=== PATIENT | female | born 1965 | race Caucasian/White ===

== ENCOUNTER 2017-11-09 08:46 | Emergency (ER) | payer BC, OTHER ==
[2017-11-09 08:59] VITALS: BP 136/84
[2017-11-09] MEDS ORDERED: HYDROcodone/ACETAMIN 5-325 MG* 1 TAB PO ONE (09:28)
[2017-11-09] MEDS ORDERED: Ondansetron ODT TAB* 4 MG PO ONE (09:28)
--- NOTE | 2017-11-09 10:09 | UC ---
Juan Josue Angela, scribed for Malu Shell MD on 11/09/17 at 0922 . Back Pain HPI - HPI Summary HPI Summary: This pt is a 52 y/o female presenting to [facility] for back pain x11 days. She reports after her colonoscopy her pain was gone. As of last night, her pain began to worsen. She describes it as severe pressure. Denies dysuria, fever, rash, diarrhea. Pt was nauseous earlier, but denies having nausea currently. Pt has tried muscle relaxants and icy-hot with no relief. She has only had coffee this morning. PCP: Dr. Watters. Family history includes colon CA (mother and grandmother). Denies hematuria, unusual frequency / urgency, urine discoloration. No GI issues (other than s/p recent colonoscopy). No report of melena / brbr. - History of Current Complaint Chief Complaint: UCGU Stated Complaint: BACK PAIN Time Seen by Provider: 11/09/17 09:07 Hx Obtained From: Patient Hx Last Menstrual Period: 02/20/14 Onset/Duration: Lasting Days, Still Present Timing: Lasting Days Severity Currently: Moderate Pain Intensity: 5 Pain Scale Used: 0-10 Numeric Back Pain: Is Discrete @ - right sided back Aggravating Factor(s): Nothing Alleviating Factor(s): Nothing Associated Signs And Symptoms: Positive: Other - NEG: dysuria,. Negative: Fever - Allergies/Home Medications Allergies/Adverse Reactions: Allergies Allergy/AdvReac Type Severity Reaction Status Date / Time No Known Allergies Allergy Verified 11/09/17 08:55 PMH/Surg Hx/FS Hx/Imm Hx Previously Healthy: Yes Other Endocrine History: DENIES: diabetes Other Cardiovascular History: DENIES: HTN - Surgical History Surgical History: Yes Surgery Procedure, Year, and Place: C-sections; tubal ligation; L knee; R rotator cuff; tonsillectomy; partial hysterrectomy, PIECE OF METAL IN EYE REMOVED; LT SHOULDER DECOMPRESSION 02/2015 - Family History Known Family History: Positive: Other - Mother and grandmother: colon CA - Social History 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 Alcohol Use: Occasionally Substance Use Type: None Smoking Status (MU): Never Smoked Tobacco Review of Systems Constitutional: Negative Skin: Negative Eyes: Negative ENT: Negative Respiratory: Negative Cardiovascular: Negative Gastrointestinal: Other - see hpi Genitourinary: Negative Motor: Negative Neurovascular: Negative Musculoskeletal: Other: - right sided back pain Neurological: Negative Psychological: Negative Is Patient Immunocompromised?: No All Other Systems Reviewed And Are Negative: Yes Physical Exam Triage Information Reviewed: Yes Appearance: Well-Nourished, Pain Distress - sitting up but looks very uncomfortable Vital Signs: Initial Vital Signs Temp 97.9 F 11/09/17 08:56 Pulse 86 11/09/17 08:56 Resp 15 11/09/17 08:56 BP 136/84 11/09/17 08:56 Pulse Ox 100 11/09/17 08:56 Vital Signs Reviewed: Yes Eye Exam: Normal ENT Exam: Normal Neck exam: Normal Neck: Positive: Supple Respiratory Exam: Normal Respiratory: Positive: Chest non-tender, Lungs clear, Normal breath sounds, No respiratory distress, Other: - no dyspnea, no tachypnea, normal respiratory rate Cardiovascular Exam: Normal Cardiovascular: Positive: RRR, No Murmur, Pulses Normal, Brisk Capillary Refill , Other: - heart rate regular, good general skin color, good capillary refill. Abdomen Description: Positive: Soft, CVA Tenderness (R), Other: - no rebound no guarding Bowel Sounds: Positive: Present Musculoskeletal Exam: Normal Musculoskeletal: Positive: Strength Intact - moves all 4 ext's Neurological Exam: Normal - nonfocal, grossly intact Psychological Exam: Normal - conversing easily and appropriately Skin Exam: Normal - no visible or reported rash Back Pain Course/Dx - Course Course Of Treatment: POC urine shows 3+ blood. Patient offered EMS. Patient declines, her will drive her. At 09:[address] Calle from [facility]. [place] 5/325po x 2, and Zofran 4mg x 1po. A little better at discharge. Narc questions prior to ordering norco. Diff dx includes renal colic. - Differential Dx/Diagnosis Provider Diagnoses: Acute R back and flank pain Discharge - Discharge Plan Condition: Stable Disposition: TRANS HIGHER LVL OF CARE FAC Referrals: Susan Watters MD [Primary Care Provider] - Additional Instructions: Please go directly to the Emergency Department. Call 911 if problems en route. The documentation as recorded by the Juan brooks Angela accurately reflects the service I personally performed and the decisions made by me, Malu Shell MD.
--- NOTE | 2017-11-11 11:38 | UC ---
- Progress Note Progress Note: please call this pt and inform of urine cx strongly positive for group b strep. let her know that we have sent in an abx to pharmacy. pt should otherwise f/ u as directed by ed. Course/Dx - Course Course Of Treatment: POC urine shows 3+ blood. Patient offered EMS. Patient declines, her will drive her. At 09:[address] Calle from [facility]. [place] 5/325po x 2, and Zofran 4mg x 1po. A little better at discharge. Narc questions prior to ordering norco. Diff dx includes renal colic.
== END 2017-11-09 09:55 | disposition short-term general hospital (02) ==
LOC: UCEAST 08:46
DX: N39.0 Urinary tract infection, site not specified (principal); B95.1 Streptococcus, group B, as the cause of diseases classified elsewhere; Z72.89 Other problems related to lifestyle
CPT/HCPCS: 81003; 87077; 87086; 99212; A9270-GY; G0463

== ENCOUNTER 2017-11-09 10:08 | Emergency (ER) | payer BC ==
[2017-11-09] MEDS ORDERED: Ondansetron INJ* 2 MG/ML VIAL IV ONE (11:32)
[2017-11-09] MEDS ORDERED: Morphine INJ* 2 MG/ML 1 ML CARPUJECT IV ONE (11:32)
[2017-11-09] MEDS ORDERED: NS 0.9% 1000 ML* 1,000 ML IV ONE (11:32)
[2017-11-09] MEDS ORDERED: Ketorolac INJ* 30 MG/ML 1 ML VIAL IV ONE (11:32)
[2017-11-09 12:07] LABS: ABS Basophils 0 10^3/ul (0-0.2); ABS Eosinophils 0.1 10^3/ul (0-0.6); ABS Lymphocytes 0.9 10^3/ul (1.0-4.8); ABS Monocytes 0.2 10^3/ul (0-0.8); ABS Neutrophils 3.5 10^3/ul (1.5-7.7); ABS Nucleated RBC 0 10^3/ul; Eosinophil % 2.6 % (0-6); Hematocrit 42 % (35-47); Hemoglobin 14.3 g/dl (12.0-16.0); Lymphocyte % 18.6 % (25-47); Mean Corpuscular HGB Conc 34 g/dl (31-36); Mean Corpuscular Hemoglobin 31 pg (27-31); Mean Corpuscular Volume 91 fL (80-97); Mean Platelet Volume 9 um3 (7.4-10.4); Nucleated Red Blood Cells % 0.1; Platelet Count 173 10^3/ul (150-450); Red Blood Count 4.65 10^6/ul (4.0-5.4); Red Cell Distribution Width 13 % (10.5-15); White Blood Count 4.8 10^3/ul (3.5-10.8)
--- NOTE | 2017-11-09 12:13 | RAD ---
INDICATION: Flank pain. Nausea. COMPARISON: No relevant prior exams available on the [facility] PACS for comparison. TECHNIQUE: Multidetector CT images were obtained from the lung bases to the ischial tuberosities. Evaluation of the viscera is limited without IV contrast. Multiplanar reformation. REPORT: The visualized inferior thorax is remarkable for minimal subsegmental atelectasis and pleural parenchymal scarring. Unremarkable unenhanced liver, gallbladder, pancreas, spleen. Negative for CT abnormality of the upper GI, small bowel, retrocecal appendix, colon. Negative for ascites, free air, or significant hernias. Normal adrenal glands. Unremarkable symmetric appearing kidneys. Negative for ureteral dilatation or stone. Unremarkable distended urinary bladder. Leftward deviated anteverted lobular margined enlarged 12.0 x 7.4 x 10.2 cm uterus. Sharply circumscribed water density 5.3 x 3.1 x 2.5 cm cystic RIGHT ovarian lesion. Unremarkable LEFT adnexal region. Negative for lymphadenopathy. Normal diameter abdominal aorta and iliac arteries. Physiologic distention of the IVC. Negative for suspicious focal osseous lesions. Schmorl node endplate herniations at multiple levels most prominent at the superior endplate of L3. Minimal grade 1 degenerative L3-L4 retrolisthesis. IMPRESSION: 1. Negative for urolithiasis or hydronephrosis. 2. Normal appendix documented. No acute pathologic process of the alimentary tract. 3. Enlarged lobular margin uterus likely secondary to multiple fibroids. 4. 5.3 cm cystic RIGHT ovarian lesion. Consider pelvic ultrasound for further assessment. 5. Negative for free fluid.
[2017-11-09] MEDS ORDERED: Morphine INJ* 4 MG/ML 1 ML CARPUJECT ONE (12:24)
[2017-11-09 12:25] LABS: INR 0.81 (0.77-1.02)
[2017-11-09 12:38] LABS: EGFR Non-African American 100.7 (>60)
--- NOTE | 2017-11-09 15:08 | RAD ---
INDICATION: Right pelvic pain. Surgical history includes left oophorectomy. COMPARISON: Same day CT of the abdomen and pelvis dated November 09, 2017 TECHNIQUE: Real-time transabdominal and transvaginal ultrasound examination of the female pelvis including grayscale and Doppler color flow imaging. FINDINGS: Uterus: The uterus is enlarged measuring 9.6 x 5.5 x 6.8 cm. There are multiple uterine fibroids identified. The largest fibroid is at the anterior fundus measuring 6.2 x 5.8 x 5.8 cm. At the right of midline myometrium there are 2 additional fibroids measuring 2.7 and 2.0 cm in greatest dimension, respectively. The endometrial stripe is mildly thickened measuring 13 mm in thickness. The endometrial stripe is smooth and homogenous in appearance. Ovaries: The right ovary measures 4.8 x 4.3 x 3.3 cm on transabdominal imaging. Extending from the right ovary there is an anechoic and avascular follicle measuring 4.4 x 2.8 x 3.8 cm in greatest dimension. Normal arterial and venous waveforms are identified. There is no free fluid in the cul-de-sac. IMPRESSION: 1. Within the right ovary there is an avascular and anechoic cystic structure measuring 4.4 cm in greatest dimension. In a woman who is still undergoing regular menstrual cycles this is most consistent with a large dominant follicle. Considering the patient's age, reasonable management would be follow-up pelvic ultrasound in 6 weeks to ascertain resolution. 2. Fibroid uterus.
--- NOTE | 2017-11-09 15:19 | ED ---
Jaren Josue Thomas, scribed for Job Parra on 11/09/17 at 1143 . Back Pain - HPI Summary HPI Summary: The patient is a 52 year old female presenting to the emergency department complaining of lower back pain in the right flank. The patient describes that she was not feeling well beginning October 30 and began feeling nauseous the last few days. She rates the pain at a 3/10. The patient denies fever, vomiting , chest pain, shortness of breath, abdominal pain, rashes, and kidney stones. She also denies any alcohol use, smoking, and drug use. - History of Current Complaint Chief Complaint: EDBackInjuryPain Stated Complaint: FLANK PAIN, COMING FROM [facility] Time Seen by Provider: 11/09/17 11:13 Hx Obtained From: Patient Hx Last Menstrual Period: 02/20/14 Onset/Duration: Lasting Days - began about 11 days ago, Still Present Onset/Duration: Started Days Ago - 11 days ago, Still Present Timing: Constant Back Pain Location: Is Discrete @ - lower back pain to the right flank Severity Initially: Moderate Severity Currently: Moderate Pain Intensity: 4 Pain Scale Used: 0-10 Numeric Associated Signs And Symptoms: Positive: Flank Pain. Negative: Fever, Abdominal Pain, Other - NEGATIVE: fever, comiting, chest pain, shortness of breath, abdominal pain, rashes, and kidney stones - Allergies/Home Medications Allergies/Adverse Reactions: Allergies Allergy/AdvReac Type Severity Reaction Status Date / Time No Known Allergies Allergy Verified 11/09/17 08:55 PMH/Surg Hx/FS Hx/Imm Hx Endocrine/Hematology History: Denies: Hx Diabetes, Hx Thyroid Disease Cardiovascular History: Denies: Hx Hypertension, Hx Pacemaker/ICD Respiratory History: Denies: Hx Asthma, Hx Chronic Obstructive Pulmonary Disease (COPD) GI History: Denies: Hx Ulcer History: Denies: Hx Renal Disease Sensory History: Denies: Hx Hearing Aid Psychiatric History: Denies: Hx Panic Disorder - Surgical History Surgery Procedure, Year, and Place: C-sections; tubal ligation; L knee; R rotator cuff; tonsillectomy; partial hysterrectomy, PIECE OF METAL IN EYE REMOVED; LT SHOULDER DECOMPRESSION 02/2015 Infectious Disease History: No Infectious Disease History: Denies: Hx Clostridium Difficile, Hx Hepatitis, Hx Human Immunodeficiency Virus (HIV), Hx of Known/Suspected MRSA, Hx Shingles, Hx Tuberculosis, Hx Known/ Suspected VRE, Hx Known/Suspected VRSA, History Other Infectious Disease, Traveled Outside the [place] in Last 30 Days - Family History Known Family History: Negative: Other - kidney stones - Social History Alcohol Use: Occasionally Substance Use Type: Reports: None Smoking Status (MU): Never Smoked Tobacco Review of Systems Negative: Fever Negative: Chest Pain Negative: Shortness Of Breath Positive: Nausea. Negative: Vomiting Positive: flank pain Musculoskeletal: Other - Right flank pain Negative: Rash All Other Systems Reviewed And Are Negative: Yes Physical Exam - Summary Physical Exam Summary: Appearance: Well appearing, no pain distress Skin: warm, dry, reflects adequate perfusion Head/face: normal Eyes: EOMI, WAYNE ENT: normal Neck: supple, non-tender Respiratory: CTA, breath sounds present Cardiovascular: RRR, pulses symmetrical Abdomen: non-tender, soft Bowel: present Musculoskeletal: Tenderness over the right flank and right upper back. strength/ ROM intact Neuro: normal, sensory motor intact, A&Ox3 Triage Information Reviewed: Yes Vital Signs On Initial Exam: Initial Vitals Temp Pulse Resp BP Pulse Ox 97.8 F 81 16 145/105 100 11/09/17 10:12 11/09/17 10:12 11/09/17 10:12 11/09/17 10:12 11/09/17 10:12 Vital Signs Reviewed: Yes Diagnostics - Vital Signs Vital Signs Temp Pulse Resp BP Pulse Ox 11/09/17 10:12 97.8 F 81 16 145/105 100 - Laboratory Lab Results: Lab Results 11/09/17 11/09/17 11/09/17 Range/Units 11:55 11:55 11:55 WBC 4.8 (3.5-10.8) 10^3/ul RBC 4.65 (4.0-5.4) 10^6/ul Hgb 14.3 (12.0-16.0) g/dl Hct 42 (35-47) % MCV 91 (80-97) fL MCH 31 (27-31) pg MCHC 34 (31-36) g/dl RDW 13 (10.5-15) % Plt Count 173 (150-450) 10^3/ul MPV 9 (7.4-10.4) um3 Neut % (Auto) 73.9 (38-83) % Lymph % (Auto) 18.6 L (25-47) % [place] % (Auto) 4.1 (1-9) % Eos % (Auto) 2.6 (0-6) % Baso % (Auto) 0.8 (0-2) % Absolute Neuts (auto) 3.5 (1.5-7.7) 10^3/ul Absolute Lymphs (auto) 0.9 L (1.0-4.8) 10^3/ul Absolute Monos (auto) 0.2 (0-0.8) 10^3/ul Absolute Eos (auto) 0.1 (0-0.6) 10^3/ul Absolute Basos (auto) 0 (0-0.2) 10^3/ul Absolute Nucleated RBC 0 10^3/ul Nucleated RBC % 0.1 INR (Anticoag Therapy) 0.81 (0.77-1.02) Sodium 136 (133-145) mmol/L Potassium 3.9 (3.5-5.0) mmol/L Chloride 105 (101-111) mmol/L Carbon Dioxide 25 (22-32) mmol/L Anion Gap 6 (2-11) mmol/L BUN 11 (6-24) mg/dL Creatinine 0.62 (0.51-0.95) mg/dL Est GFR ( Amer) 129.5 (>60) Est GFR (Non-Af Amer) 100.7 (>60) BUN/Creatinine Ratio 17.7 (8-20) Glucose 116 H (70-100) mg/dL Calcium 9.6 (8.6-10.3) mg/dL Total Bilirubin 0.40 (0.2-1.0) mg/dL AST 19 (13-39) U/L ALT 22 (7-52) U/L Alkaline Phosphatase 67 (34-104) U/L Total Protein 7.3 (6.4-8.9) g/dL Albumin 4.8 (3.2-5.2) g/dL Globulin 2.5 (2-4) g/dL Albumin/Globulin Ratio 1.9 (1-3) Lipase 71 (11.0-82.0) U/L Beta HCG, Quant < 0.60 mIU/mL Result Diagrams: 11/09/17 11:55 11/09/17 11:55 Lab Statement: Any lab studies that have been ordered have been reviewed, and results considered in the medical decision making process. - CT Abd/Pel CT Interpretation: Positive (See Comments) - 1. Negative for urolithiasis or hydronephrosis. 2. Normal appendix documented. No acute pathologic process of the alimentary tract. 3. Enlarged lobular margin uterus likely secondary to multiple fibroids. 4. 5.3 cm cystic RIGHT ovarian lesion. Consider pelvic ultrasound for further assessment. 5. Negative for free fluid. Dr. Parra has reviewed this report. CT Interpretation Completed By: Radiologist - Additional Comments Diagnostic Additional Comments: Pelvis Ultrasound. Interpreted by radiologist. Impression: 1. Within the right ovary there is an avascular and anechoic cystic structure measuring 4.4 cm in greatest dimension. In a woman who is still undergoing regular menstrual cycles this is most consistent with a large dominant follicle. Considering the patient' s age, reasonable management would be follow-up pelvic ultrasound in 6 weeks to ascertain resolution. 2. Fibroid uterus. Dr. Parra has reviewed this report. Back Pain Course/Dx - Course Assessment/Plan: The patient is diagnosed with flank pain fibroid uterus, and ovarian cyst. I consulted with Dr. Chen, who recommends uterine embolization for fibroids. The patient is instructed to follow up with Dr. Chen if she is interested. She is also instructed to follow up with her SALES CONSULTANT. - Diagnoses Differential Diagnosis/HQI/PQRI: Positive: Strain, Sprain, Other - renal colic/ fibroid uterus/ovarian cyst Provider Diagnoses: Flank pain, Fibroid uterus, Ovarian cyst - Provider Notifications Discussed Care Of Patient With: Nuno Chen Time Discussed With Above Provider: 15:11 Instructed by Provider To: Other - Dr. Chen recommends follow up with him for uterine embolization. Discharge - Discharge Plan Condition: Stable Disposition: HOME Prescriptions: Naproxen Sodium [Naproxen Sodium ER 500 MG TAB] 500 mg PO TID #21 tab Patient Education Materials: Ovarian Cyst (ED), Flank Pain (ED) Referrals: [facility] [Outside] - 3 Days Nuno Chen MD [Medical Doctor] - 3 Days Additional Instructions: If you are interested, follow up with Dr. Chen for uterine embolization. Follow up with your SALES CONSULTANT. If you do not have one, you can use the [facility] [place] to find one and make an appointment. Return to the emergency department for any new or worsening symptoms. The documentation as recorded by the Jaren brooks Thomas accurately reflects the service I personally performed and the decisions made by , Job Parra.
[2017-11-09 15:37] VITALS: BP 130/92
== END 2017-11-09 15:38 | disposition home or self-care (01) ==
LOC: ED 10:08
DX: R10.84 Generalized abdominal pain (principal); D25.9 Leiomyoma of uterus, unspecified; N83.201 Unspecified ovarian cyst, right side; R11.0 Nausea
CPT/HCPCS: 36415; 74176; 76856; 80053; 83690; 84702; 85025; 85610; 99283; J1885; J2270; J2405

== ENCOUNTER 2018-10-16 09:18 | Emergency (ER) | payer BC ==
[2018-10-16 10:43] VITALS: BP 145/90
[2018-10-16] MEDS ORDERED: Albuterol HFA INHALER* 8 gm MDI INH ONE (10:50)
[2018-10-16] MEDS ORDERED: predniSONE TAB* 20 MG PO ONE (10:50)
--- NOTE | 2018-10-16 10:52 | UC ---
Respiratory Complaint HPI - HPI Summary HPI Summary: The patient is a 53-year-old female with about a 2 week history of nasal congestion postnasal drip cough. She now has bilateral ear pain left much greater than right. Now with decreased hearing in her left ear. Her right ear is popping. - History of Current Complaint Chief Complaint: UCRespiratory Stated Complaint: EARS/ST/CONGESTION Time Seen by Provider: 10/16/18 10:45 Hx Obtained From: Patient Hx Last Menstrual Period: 02/20/14 Onset/Duration: Gradual Onset, Lasting Weeks Timing: Constant Severity Initially: Mild Severity Currently: Moderate Pain Intensity: 4 Pain Scale Used: 0-10 Numeric Character: Cough: Productive - at tmes Aggravating Factors: Exertion, Deep Breaths Alleviating Factors: Nothing Associated Signs And Symptoms: Positive: Wheezing, Nasal Congestion, Sinus Discomfort - Allergies/Home Medications Allergies/Adverse Reactions: Allergies Allergy/AdvReac Type Severity Reaction Status Date / Time No Known Allergies Allergy Verified 10/16/18 10:36 Home Medications: Home Medications Dm/PE/Acetaminophen/Doxylamine [Nighttime Severe Col... 5-6.25-10-325 mg/15Ml] 1 dose PO ONCE 10/16/18 [History Confirmed 10/16/18] PMH/Surg Hx/FS Hx/Imm Hx Previously Healthy: Yes - Surgical History Surgical History: Yes Surgery Procedure, Year, and Place: C-sections;. tubal ligation;. L knee;. R rotator cuff;. tonsillectomy;. hysterrectomy,. PIECE OF METAL IN EYE REMOVED; . LT SHOULDER DECOMPRESSION 02/2015 - Family History Known Family History: Positive: Hypertension Negative: Other - kidney stones - Social History Alcohol Use: Occasionally Substance Use Type: None Smoking Status (MU): Never Smoked Tobacco Review of Systems All Other Systems Reviewed And Are Negative: Yes Constitutional: Positive: Negative Skin: Positive: Negative Eyes: Positive: Negative ENT: Positive: Ear Ache, Nasal Discharge, Sinus Congestion Respiratory: Positive: Cough Cardiovascular: Positive: Negative Gastrointestinal: Positive: Negative Genitourinary: Positive: Negative Motor: Positive: Negative Neurovascular: Positive: Negative Musculoskeletal: Positive: Negative Neurological: Positive: Negative Psychological: Positive: Negative Physical Exam Triage Information Reviewed: Yes Appearance: Well-Appearing, No Pain Distress, Well-Nourished Vital Signs: Initial Vital Signs Temp 97.7 F 10/16/18 10:37 Pulse 78 10/16/18 10:37 Resp 16 10/16/18 10:37 BP 145/90 10/16/18 10:37 Pulse Ox 100 10/16/18 10:37 Vital Signs Reviewed: Yes Eyes: Positive: Conjunctiva Clear ENT: Positive: Hearing grossly normal, Nasal congestion, Nasal drainage, TM bulging - bilat, TM dull - L, TM red - L, Sinus tenderness, Uvula midline Neck: Positive: Supple, Nontender, No Lymphadenopathy Respiratory: Positive: No respiratory distress, No accessory muscle use, Wheezing - with forced expiration Cardiovascular: Positive: RRR, No Murmur Musculoskeletal: Positive: ROM Intact, No Edema Neurological: Positive: Alert Psychological Exam: Normal Skin Exam: Normal UC Diagnostic Evaluation - Laboratory O2 Sat by Pulse Oximetry: 100 Respiratory Course/Dx - Differential Dx/Diagnosis Provider Diagnosis: Bronchospasm with bronchitis, acute, Left otitis media, Elevated blood pressure reading without diagnosis of hypertension, Sinusitis Discharge - Sign-Out/Discharge Documenting (check all that apply): Patient Departure All imaging exams completed and their final reports reviewed: No Studies - Discharge Plan Condition: Stable Disposition: HOME Prescriptions: Amoxicillin PO (*) [Amoxicillin 875 MG (*)] 875 mg PO BID #14 tab Fluticasone NASAL SPRAY 50MCG* [Flonase NASAL SPRAY 50MCG*] 2 spray BOTH NARES BID #1 btl predniSONE [Deltasone 20 MG TAB] 40 mg PO DAILY #10 tab Patient Education Materials: How to Use a Metered-Dose Inhaler (ED), Ear Infection (ED), Acute Bronchitis (ED) Forms: *Work Release Referrals: Susan Watters MD [Primary Care Provider] - 1 Week (if not better) Additional Instructions: BP elevated and needs to be rechecked in 2-12 weeks 145/90 - Billing Disposition and Condition Condition: STABLE Disposition: Home
== END 2018-10-16 11:07 | disposition home or self-care (01) ==
LOC: UCCORT 09:18
DX: J20.9 Acute bronchitis, unspecified (principal); H66.92 Otitis media, unspecified, left ear; R03.0 Elevated blood-pressure reading, without diagnosis of hypertension; J32.9 Chronic sinusitis, unspecified
CPT/HCPCS: 99212; A9270-GY; G0463; J7512

== ENCOUNTER 2019-11-03 13:14 | Emergency (ER) | payer BC ==
--- OUTSIDE RECORDS SUMMARY | 2019-11-03 13:20 | XMS REPORT | Summary of Care ---
:1965 Author Organization [facility] Address 1 [facility] [place] [address] Care Team Providers Name Role Phone Susan Watters Primary Care Provider Reason for Visit Reason Comments Surgical Followup Kirstin is here today for her 2 week post op appt. s/p RS/SAD/JARAD/INJECTION on 09/04/19. She is doing well. Incisions well approximated. Encounter Details Date Type Department Care Team Description 09/10/2019 Office Visit [facility] - Star Garcia MD S/P arthroscopy of [address] right shoulder 10 [facility] [place] [address] (Primary Dx) [address] [phone] [place] [address] [phone] Allergies No Known Allergiesdocumented as of this encounter (statuses as of 09/10/2019) Medications Medication Sig Dispensed Refills Start Date End Date Status ZOLOFT 100 MG Oral Take 1.5 Tabs by 135 Tab 3 01/24/2019 Active TabIndications: Other mouth DAILY. depression Additional information Patient taking differently: 100 mg Oral DAILY, Reported on 09/01/2019 1:18 PM cyclobenzaprine Take 1 Tab by 30 Tab 0 04/04/2019 Active (FLEXERIL) 10 MG Oral mouth EVERY TabIndications: Strain BEDTIME of neck muscle, initial NEEDED (shoulder encounter pain). OXYcodone Take 1 Tab by 20 Tab 0 09/04/2019 Discontinued (OXY-IR,OXY-FAST) 5 MG mouth EVERY FOUR 019 (Therapy Completed) Oral Tab HOURS NEEDED (pain). Max Daily Amount: 30 mg. documented as of this encounter (statuses as of 09/10/2019) Active Problems Problem Noted Date Shoulder stiffness, right 07/14/2019 Overview: Added automatically from request for surgery [id number] FHx: colon cancer 03/14/2017 Stiffness of left shoulder joint 08/25/2015 Status post decompression of subacromial space 03/30/2015 Rotator cuff tear 02/22/2015 Shoulder pain, left 12/22/2014 Disorders of bursae and tendons in shoulder region, unspecified 12/22/2014 Migraine headache 12/14/2010 Adhesion of abdominal wall 01/10/2008 Overview: x3; laparotomy Other and unspecified ovarian cyst 05/24/2007 Overview: Cyst removed 05/2007 documented as of this encounter (statuses as of 09/10/2019) Immunizations Name Administration Dates Next Due TDAP Vaccine 04/20/2017 documented as of this encounter Social History Tobacco Use Types Packs/Day Years Used Date Never Smoker 0 Smokeless Tobacco: Never Used Tobacco Cessation: Counseling Given: No Alcohol Use Drinks/Week oz/Week Comments Yes 10-12 Standard drinks or equivalent 14.0 - 17.0 4-5 Cans of beer Alcohol Habits Answer Date Recorded How often do you have a drink containing alcohol? 2-3 times a week 09/01/2019 How many drinks containing alcohol do you have on a Not asked typical day when you are drinking? How often do you have six or more drinks on one Not asked occasion? Sex Assigned at Date Recorded Not on file Job Start Date Occupation Industry Not on file Not on file Not on file Travel History Travel Start Travel End No recent travel history available. documented as of this encounter Last Filed Vital Signs Vital Sign Reading Time Taken Comments Blood Pressure 125/84 09/10/2019 11:36 AM EST Pulse - - Temperature - - Respiratory Rate - - Oxygen Saturation - - Inhaled Oxygen Concentration - - Weight 63.5 kg (140 lb) 09/10/2019 11:36 AM EST Height 149.9 cm (4' 11") 09/10/2019 11:36 AM EST Body Mass Index 28.28 09/10/2019 11:36 AM EST documented in this encounter Progress Notes Star Garcia MD - 09/10/2019 11:15 AM EST PATIENT: Kirstin Ta : 1965 DATE OF SERVICE: 09/10/2019 REFERRING PRACTITIONER: Star Garcia PRIMARY CARE PROVIDER: Susan Watters CHIEF COMPLAINT: Chief Complaint Patient presents with Surgical Followup Kirstin is here today for her 2 week post op appt. s/p RS/SAD/JARAD/INJECTION on . She is doingwell. Incisions well approximated. HISTORY OF PRESENT ILLNESS: Kirstin Ta is a 54-y.o. female who returns for a follow up for right shoulder subacromial decompression, manipulation. PHYSICAL EXAM: Incision clean dry and intact Neurovascularly intact IMPRESSION: ICD-9-CM ICD-10-CM 1. S/P arthroscopy of right shoulder V45.89 Z98.890 PLAN: Doing well. Continue exercises. Follow up in 4 weeks. The numbness in her fingers are improving. Author: Star Garcia MD 09/10/2019 13:31 documented in this encounter Plan of Treatment Date Type Specialty Care Team Description 10/08/2019 Office Visit Orthopedics Star Garcia MD 1 [place] [address] Health Maintenance Due Date Last Done Comments ZOSTER IMMUNIZATION SERIES 2014 (1 of 2) INFLUENZA VACCINE (#1) 2019 DEPRESSION SCREENING 01/25/2020 01/24/2019 DIABETES SCREENING 09/01/2020 09/01/2019, 04/30/2017, 04/30/2017, Additional history exists LIPID DISORDER SCREENING 04/30/2022 04/30/2017, 08/11/2015, 05/02/2006 Colonoscopy 10/30/2022 10/30/2017, 04/30/2017 HPV IMMUNIZATION SERIES Aged Out No longer eligible based on patient's age to complete this topic MENINGOCOCCAL VACCINE IMM Aged Out No longer eligible based on patient's age to complete this topic PNEUMOCOCCAL 0-64 YRS Aged Out No longer eligible based on patient's age to complete this topic documented as of this encounter Goals Goal Patient Goal Associated Recent Patient-Stated? Author Type Problems Progress Depression Depression No lucy Watters (PHQ-9) MD Susan total score < 5 Note: This is an individualized treatment (depression) goal for Kirstin Ta: Displayed above is your goal for a depression screening (PHQ-9) score that would indicate good control of your depression. Keep a regular sleep schedule Lifestyle Susan Alves MD Note: This is an individualized lifestyle goal for Kirstin Ta: Please maintain a regular sleep schedule. This may help with some symptoms of depression. Take all prescribed medications as directed Self-management Susan Alves MD Note: This is an individualized self-management goal for Kirstin Ta: Please take all prescribed medications as directed. 1. Do not skip doses. If you cannot afford your medications, talk with your doctor. 2. Use a pill reminder system such as a pill box if needed. Your pharmacist can help you with this. 3. Contact your Pharmacy 5 days before your medication runs out. If you cannot take your medications for any reasons, talk with your doctor. 4. Please bring all of your medication bottles and inhalers (or a list of all your medications/inhalers) with you to every visit. Potential barriers to meeting all of your care plan goals will continue to be addressed on an ongoing basis. documented as of this encounter Implants Implanted Type Area Psychiatry Teacher Device Shelf Model / Identifier Expiration Date Serial / Lot Fiberwire #2 - [id number] Left: ARTHREX 06/22/2019 [id number] / Implanted: Qty: 1 on 03/03/2015 by Eliud Aranda MD at [facility] [place] / [id number] documented as of this encounter Results Not on filedocumented in this encounter Visit Diagnoses Diagnosis S/P arthroscopy of right shoulder - Primary documented in this encounter Insurance Payer Benefit Plan / Subscriber ID Effective Dates Phone Address Type Group [facility]WORKERS xxxxxxxxx 2008-[employer] Workers Comp COMP [facility] GENERIC (Work) [id number] documented as of this encounter
--- OUTSIDE RECORDS SUMMARY | 2019-11-03 13:20 | XMS REPORT | Summary of Care ---
:1965 Author Organization [facility] Address 1 [facility] [place] [address] Care Team Providers Name Role Phone ElijahSusan ramirez Primary Care Provider Reason for Visit Reason Comments Post-op Follow-up S/P RS/SAD/JARAD/CAPS RLS/IHJ 09-04-19. Encounter Details Date Type Department Care Team Description 10/29/2019 Office Visit [facility] Jonathaniglio, Right shoulder pain , unspecified chronicity (Primary Dx); - [place] Martinez, ONESIMO-C Pain in right acromioclavicular joint [address] 1 [facility] [address] [place] [address] [place] [address] Allergies No Known Allergiesdocumented as of this encounter (statuses as of 10/29/2019) Medications Medication Sig Dispensed Refills Start Date End Date Status ZOLOFT 100 MG Oral Take 1.5 Tabs by 135 Tab 3 01/24/2019 Active TabIndications: Other mouth DAILY. depression Additional information Patient taking differently: 100 mg Oral DAILY, Reported on 09/01/2019 1:18 PM cyclobenzaprine (FLEXERIL) 10 Take 1 Tab by mouth EVERY 30 Tab 0 2018 Active MG Oral TabIndications: Strain BEDTIME NEEDED of neck muscle, initial (shoulder pain). encounter diclofenac (VOLTAREN) 75 MG Take 1 Tab by mouth TWICE 60 Tab 0 10/29/2019 Active Oral Tab EC DAILY. OXYcodone-acetaminophen Take 1 Tab by mouth EVERY 21 Tab 0 10/29/2019 Active (PERCOCET) 5-325 MG Oral Tab EIGHT HOURS NEEDED (pain, continued treatment). Max Daily Amount: 3 Tabs. documented as of this encounter (statuses as of 10/29/2019) Active Problems Problem Noted Date Shoulder stiffness, right 07/14/2019 Overview: Added automatically from request for surgery [id number] FHx: colon cancer 03/14/2017 Stiffness of left [...] as of this encounter (statuses as of 10/29/2019) Immunizations Name Administration Dates Next Due TDAP Vaccine 04/20/2017 documented as of this encounter Social History Tobacco Use Types Packs/Day Years Used Date Never Smoker 0 Smokeless Tobacco: Never Used Alcohol Use Drinks/Week oz/Week Comments Yes 10-12 [...] Sign Reading Time Taken Comments Blood Pressure 177/126 10/29/2019 1:26 PM EST Pulse 93 10/29/2019 1:26 PM EST Temperature - - Respiratory Rate - - Oxygen Saturation - - Inhaled Oxygen Concentration - - Weight 63.5 kg (140 lb) 10/29/2019 1:26 PM EST Height 149.9 cm (4' 11") 10/29/2019 1:26 PM EST Body Mass Index 28.28 10/29/2019 1:26 PM EST documented in this encounter Progress Notes Juan Flores RPA-C - 10/29/2019 1:15 PM EST PATIENT: Kirstin Ta : 1965 DATE OF SERVICE: 10/29/2019 REFERRING PRACTITIONER: Self-Referred PRIMARY CARE PROVIDER: Susan Watters CHIEF COMPLAINT: Chief Complaint Patient presents with Post-op Follow-up S/P RS/SAD/JARAD/CAPS RLS/IHJ 09-04-19. HISTORY OF PRESENT ILLNESS: Kirstin Ta is a 54-y.o. female who returns for a follow up for right shoulder subacromial decompression, manipulation about 7 weeks ago. State she woke up with her arm stuck above her head and felt a pull when she lowered it down. Has had increased pain since that time. State numbness in her fingers prior to surgery has resolved. PHYSICAL EXAM: Incision clean dry and intact Neurovascularly intact Marked tenderness over AC joint. Flexion 100, 4/5 ER 20, 4/5 IR back pocket 4/5 + impingement symptoms. Xrays: no fracture, moderate AC joint arthritis. IMPRESSION: ICD-9-CM ICD-10-CM 1. Right shoulder pain, unspecified chronicity 719.41 M25.511 XR SHOULDER MIN 2 VIEWS RIGHT (STANDARD) 2. Pain in right acromioclavicular joint 719.41 M25.511 PLAN: I think she aggravated her AC joint. She does have some underlying arthritis so this may have flaredup. Aleve and tylenol have not helped. She has been doing PT but only modalities due to pain. Will discontinue aleve and start Voltaren twice daily. Given refill for oxycodone for pain only temporarily. May use sling intermittently. Continue PT for modalities only. Can do pendulum and passive range ofmotion if tolerated. Follow up as instructed. Author: MOIZ Marquez 10/29/2019 15:05 documented in this encounter Plan of Treatment Date Type Specialty Care Team Description 11/05/2019 Office Visit Orthopedics Star Garcia MD 1 [place] [address] Name Type Priority Associated Diagnoses Date/Time XR SHOULDER MIN 2 Imaging Routine Right shoulder pain, 10/29/2019 1:51 PM VIEWS RIGHT (STANDARD) unspecified chronicity EST Name Type Priority Associated Diagnoses Order Schedule XR SHOULDER MIN 2 Imaging Routine Right shoulder pain, Expected: 10/29/2019 , VIEWS RIGHT (STANDARD) unspecified chronicity Expires: 10/28/2020 Health Maintenance Due Date Last Done Comments ZOSTER IMMUNIZATION SERIES 2014 (1 of 2) INFLUENZA VACCINE (#1) 2019 DEPRESSION SCREENING 01/25/2020 01/24/2019 DIABETES SCREENING 09/01/2020 09/01/2019, 04/30/2017, 04/30/2017, Additional history exists LIPID DISORDER SCREENING 04/30/2022 04/30/2017, 08/11/2015, 05/02/2006 Colonoscopy 10/30/2022 10/30/2017, 04/30/2017 DTaP/Tdap/Td Vaccines (2 - 04/20/2027 04/20/2017 Tdap) HEPATITIS A IMMUNIZATION Aged Out No longer eligible SERIES based on patient's age to complete this topic HPV IMMUNIZATION SERIES Aged Out No longer [...] depression. Keep a regular sleep schedule Lifestyle No Susan Watters MD Note: This is an individualized lifestyle goal for Kirstin Ta: Please maintain a regular sleep schedule. This may help with some symptoms of depression. Take all prescribed medications as directed Self-management No Susan Watters MD Note: This is an individualized self-management goal for Kirstin Crews Naomielle: Please take all prescribed medications as directed. [...] of this encounter Implants Implanted Type Area Mobile Device Engineer Device Shelf Model / Identifier Expiration Date Serial / Lot Trupti #2 - [id number] Left: ARTHREX 06/22/2019 AR-[id number] / Implanted: Qty: 1 on 03/03/2015 by Eliud Aranda MD at [facility] / [id number] documented as of this encounter Results Not on filedocumented in this encounter Visit Diagnoses Diagnosis Right shoulder pain, unspecified chronicity Pain in right acromioclavicular joint Pain in joint, shoulder region documented in this encounter Insurance Payer Benefit Plan / Subscriber ID Effective Dates Phone Address Type Group WC GENERIC [place]WORKERS xxxxxxxxx 2008-[facility] Workers Comp COMP [facility] GENERIC (Work) [id number] documented as of this encounter
--- OUTSIDE RECORDS SUMMARY | 2019-11-03 13:20 | XMS REPORT | Summary of Care ---
:1965 Author Organization [facility] Address [address] [place] [address] Care Team Providers Name Role Phone Susan Watters Primary Care Provider Reason for Visit Reason Comments Follow Up Kirstin is here today for follow up s/p RS/SAD/JARAD/CAPS RLS/ INJ. on . Encounter Details Date Type Department Care Team Description 10/08/2019 Office Visit [facility] - Star Garcia MD S/P arthroscopy of [place] [facility] right shoulder 10 [facility] [place] [address] (Primary Dx) [address] [phone] [place] [address] [phone] Allergies No Known Allergiesdocumented as of this encounter (statuses as of 10/16/2019) Medications Medication Sig Dispensed Refills Start Date [...] of neck muscle, initial (shoulder pain). encounter documented as of this encounter (statuses as of 10/16/2019) Active Problems Problem Noted Date Shoulder stiffness, right 07/14/2019 Overview: Added automatically from request for surgery [id number] FHx: colon cancer 03/14/2017 Stiffness of left [...] as of this encounter (statuses as of 10/16/2019) Immunizations Name Administration Dates Next Due TDAP [...] Sign Reading Time Taken Comments Blood Pressure 148/91 10/08/2019 9:24 AM EST Pulse 88 10/08/2019 9:24 AM EST Temperature - - Respiratory Rate - - Oxygen Saturation - - Inhaled Oxygen Concentration - - Weight 63.5 kg (140 lb) 10/08/2019 9:24 AM EST Height 149.9 cm (4' 11") 10/08/2019 9:24 AM EST Body Mass Index 28.28 10/08/2019 9:24 AM EST documented in this encounter Progress Notes Star Garcia MD - 10/08/2019 9:15 AM EST PATIENT: Kirstin Ta : 1965 DATE OF SERVICE: 10/08/2019 REFERRING PRACTITIONER: Star Garcia PRIMARY CARE PROVIDER: Susan Watters CHIEF COMPLAINT: Chief Complaint Patient presents with Follow Up Kirstin is here today for follow up s/p RS/SAD/JARAD/CAPS RLS/ INJ. on 09/04/19. HISTORY OF PRESENT ILLNESS: Kirstin Ta is a 54-y.o. female who returns for a follow up for right shoulder subacromial decompression, manipulation. PHYSICAL EXAM: Incision clean dry and intact Neurovascularly intact IMPRESSION: ICD-9-CM ICD-10-CM 1. S/P arthroscopy of right shoulder V45.89 Z98.890 PLAN: Continue exercises. Activity as tolerated. Non-steroidal anti inflammatory drugs for pain. Follow up as instructed. Author: Star Garcia MD 10/16/2019 09:58 documented in this encounter Plan of Treatment Date Type Specialty Care Team Description 11/05/2019 Office Visit Orthopedics Star Garcia MD 1 [place] [address] [phone] Health Maintenance Due Date Last Done Comments [...] Author Type Problems Progress Depression Depression No Crepet, screen (PHQ-9) MD Susan total score < 5 [...] of this encounter Implants Implanted Type Area Manufacturing Team Member Device Shelf Model / Identifier Expiration Date Serial / Lot Trupti #2 - [id number] Left: ARTHREX 06/22/2019 AR-[id number] / Implanted: Qty: 1 on 03/03/2015 by Eliud Aranda MD at [facility] Shoulder / [id number] documented as of this encounter Results Not on filedocumented in this encounter Visit Diagnoses Diagnosis S/P arthroscopy of right shoulder documented in this encounter Insurance Payer Benefit Plan / Subscriber ID Effective Dates Phone Address Type Group [place] xxxxxxxxx 2008-[employer] [place] [facility] [place] (Work) [id number] documented as of this encounter
[2019-11-03 13:24] VITALS: BP 182/111
--- NOTE | 2019-11-03 13:37 | UC ---
General HPI - HPI Summary HPI Summary: Ms. Ta was apparently coming [facility] for blood pressure check with her daughter. When she got here and got out of the car her daughter noticed that she was confused. Last known well was approximately 1300 hrs. She gets frequent headaches usually they are occipital. She's had a right- sided headache since she got up this morning. It has not changed. She did not take anything for. - History of Current Complaint Stated Complaint: DIZZINESS, CONFUSION Time Seen by Provider: 11/03/19 13:21 Hx Obtained From: Patient, Family/Cathodic Protection Technician Hx Last Menstrual Period: 02/20/14 Onset/Duration: Sudden Onset Timing: Constant Onset Severity: Moderate Current Severity: Moderate Pain Intensity: 9 Associated Signs & Symptoms: Positive: Confusion, Headache - Allergy/Home Medications Allergies/Adverse Reactions: Allergies Allergy/AdvReac Type Severity Reaction Status Date / Time No Known Allergies Allergy Verified 10/16/18 10:36 PMH/Surg Hx/FS Hx/Imm Hx Neurological History: Migraine - Surgical History Surgical History: Yes Surgery Procedure, Year, and Place: C-sections;. tubal ligation;. L knee;. R rotator cuff;. tonsillectomy;. hysterrectomy,. PIECE OF METAL IN EYE REMOVED; . LT SHOULDER DECOMPRESSION 02/2015 - Family History Known Family History: Positive: None, Hypertension Negative: Other - kidney stones - Social History Alcohol Use: Occasionally Substance Use Type: None Smoking Status (MU): Never Smoked Tobacco Review of Systems All Other Systems Reviewed And Are Negative: Yes Constitutional: Positive: Negative Skin: Positive: Negative Neurological: Positive: Headache Psychological: Positive: Other - tearful Physical Exam - Summary Physical Exam Summary: She is nontoxic in appearance and cooperative to exam. Her blood pressure was elevated Triage Information Reviewed: Yes Appearance: Well-Appearing Vital Signs: Initial Vital Signs Temp 98.9 F 11/03/19 13:20 Pulse 108 11/03/19 13:20 Resp 18 11/03/19 13:20 BP 182/111 11/03/19 13:20 Pulse Ox 100 11/03/19 13:20 Vital Signs Reviewed: Yes ENT Exam: Normal Neck exam: Normal Neck: Positive: Supple Respiratory: Positive: Lungs clear Cardiovascular: Positive: RRR Abdomen Description: Positive: Nontender Neurological Exam: Other - A limited NIH stroke scale is 3 Skin Exam: Normal Course/Dx - Course Course Of Treatment: She could not tell me what month it is and had some very mild right-sided weakness. She's had fairly recent right shoulder surgery and this may contribute to that. It's unclear exactly what is going on. She may have an atypical migraine, hypertensive urgency or some sort of CVA. In any case this is more than we can handle here in the emesis contacted immediately for transfer to [facility] for possible code camilo. I notified Dr. Acharya. - Diagnoses Provider Diagnosis: AMS (altered mental status) Discharge ED - Sign-Out/Discharge Documenting (check all that apply): Patient Departure All imaging exams completed and their final reports reviewed: No Studies - Discharge Plan Condition: Guarded Disposition: ADMITTED TO [facility] Referrals: Susan Watters MD [Primary Care Provider] - - Billing Disposition and Condition Condition: GUARDED Disposition: Admitted to [facility]
== END 2019-11-03 13:47 | disposition short-term general hospital (02) ==
LOC: UCEAST 13:14
DX: R41.82 Altered mental status, unspecified (principal); R53.1 Weakness; R51 Headache
CPT/HCPCS: 93005; 99213; G0463

== ENCOUNTER 2019-11-03 14:09 | Observation (INO) | payer BC ==
[2019-11-03] MEDS ORDERED: NS 0.9% 1000 ML** 1,000 ML IV ONE (14:15)
--- NOTE | 2019-11-03 14:20 | ED ---
Neurological HPI - HPI Summary HPI Summary: Pt is a 54 y/o F presenting to the ED brought in by EMS for neurological deficit. Per EMS, they were called to today by Dr. Campbell as the pt was hypertensive, confused, and not making a lot of sense. Notable R shoulder surgery in August of 2019. She is weak on her R side which she states is intermittent but then denies, and is reporting decreased sensation on the R side of her body. EMS states her gait is normal. When asked the months, it takes her a couple minutes of using significant dates to her to remember correctly. NIH stroke scale done 1413. CODE LEYVA CALLED 1414. Pt not on anticoagulants, considering tPA. Per family, pt last texted them normally at 12:30pm today, which is her last known well time. Pt to CT at 14:16, returned to room at 14:23. Discussed CT results at 14:[address] Noyola. - History of Current Complaint Stated Complaint: HIGH BP/DIZZINESS AND CONFUSION PER PT Time Seen by Provider: 11/03/19 14:15 Last Known Well Date: 12:30pm Hx Obtained From: Patient, Family/Staff Rn, EMS Hx Last Menstrual Period: 02/20/14 Onset/Duration: Gradual Onset, Started hours ago, Still Present Timing: Constant Onset Severity: Mild Current Severity: Moderate Character: Weak, Numbness/Tingling, Confusion Aggravating: Unknown Alleviating: Nothing Associated Signs and Symptoms: Positive: Confusion, AMS, Numbness TPA Considered: Yes - evaluated by addis, no tpa given d/t TIA - Allergy/Home Medications Allergies/Adverse Reactions: Allergies Allergy/AdvReac Type Severity Reaction Status Date / Time No Known Allergies Allergy Verified 10/16/18 10:36 Home Medications: Home Medications Cyclobenzaprine TAB* [Flexeril 10 MG TAB*] 10 mg PO BEDTIME PRN 11/03/19 [ History Confirmed 11/03/19] Diclofenac Sodium 75 mg PO BID 11/03/19 [History Confirmed 11/03/19] Sertraline* [Zoloft*] 150 mg PO DAILY 11/03/19 [History Confirmed 11/03/19] oxyCODONE/Acetamin 5/325 MG* [Percocet 5/325 TAB*] 1 tab PO Q8H PRN 11/03/19 [ History Confirmed 11/03/19] PMH/Surg Hx/FS Hx/Imm Hx Previously Healthy: Yes Endocrine/Hematology History: Denies: Hx Diabetes, Hx Thyroid Disease Cardiovascular History: Denies: Hx Hypertension, Hx Pacemaker/ICD Respiratory History: Denies: Hx Asthma, Hx Chronic Obstructive Pulmonary Disease (COPD) GI History: Denies: Hx Ulcer History: Denies: Hx Renal Disease Sensory History: Denies: Hx Hearing Aid Psychiatric History: Denies: Hx Panic Disorder - Surgical History Surgery Procedure, Year, and Place: C-sections;. tubal ligation;. L knee;. R rotator cuff;. tonsillectomy;. hysterrectomy,. PIECE OF METAL IN EYE REMOVED; . LT SHOULDER DECOMPRESSION 02/2015 Infectious Disease History: Denies: Hx Clostridium Difficile, Hx Hepatitis, Hx Human Immunodeficiency Virus (HIV), Hx of Known/Suspected MRSA, Hx Shingles, Hx Tuberculosis, Hx Known/ Suspected VRE, Hx Known/Suspected VRSA, History Other Infectious Disease, Traveled Outside the [place] in Last 30 Days - Family History Known Family History: Positive: Hypertension Negative: Other - kidney stones - Social History Alcohol Use: Occasionally Hx Substance Use: No Substance Use Type: Reports: None Hx Tobacco Use: No Smoking Status (MU): Never Smoked Tobacco Review of Systems Positive: Other - hypertensive Neurological: Other - confusion Positive: Weakness, Numbness All Other Systems Reviewed And Are Negative: Yes Physical Exam - Summary Physical Exam Summary: VITAL SIGNS: Reviewed. GENERAL: Patient is a well-developed and nourished female who is lying comfortable in the stretcher. Pt is anxious, crying. Patient is not in any acute respiratory distress. HEAD AND FACE: No signs of trauma. No ecchymosis, hematomas or skull depressions. No sinus tenderness. EYES: PERRLA, EOMI x 2, No injected conjunctiva, no nystagmus. No photophobia. EARS: Hearing grossly intact. Ear canals and tympanic membranes are within normal limits. MOUTH: Oropharynx within normal limits. NECK: Supple, trachea is midline, no adenopathy, no JVD, no carotid bruit, no c- spine tenderness, neck with full ROM. No meningeal signs, no Kernig's or brudzinskis signs. CHEST: Symmetric, no tenderness at palpation. LUNGS: Clear to auscultation bilaterally. No wheezing or crackles. CVS: Regular rate and rhythm, S1 and S2 present, no murmurs or gallops appreciated. ABDOMEN: Soft, non-tender. No signs of distention. No rebound, no guarding, and no masses palpated. Bowel sounds are normal. EXTREMITIES: FROM in all major joints, no edema, no cyanosis or clubbing. NEURO: Alert but not oriented. Limited ROM in the R shoulder secondary to surgery. Slight weakness in the RLE. Speech is normal and follows commands. SKIN: Dry and warm. GCS: 15 Triage Information Reviewed: Yes Vital Signs Reviewed: Yes - Clif Coma Scale Best Eye Response: 4 - Spontaneous Best Motor Response: 6 - Obeys Commands Best Verbal Response: 5 - Oriented Coma Scale Total: 15 Procedures - Sedation Patient Received Moderate/Deep Sedation with Procedure: No Diagnostics - Laboratory Result Diagrams: 11/03/19 14:30 11/03/19 14:30 Lab Statement: Any lab studies that have been ordered have been reviewed, and results considered in the medical decision making process. - Radiology CXR Radiology Interpretation Completed By: Radiologist Summary of Radiographic Findings: No evidence for active cardiopulmonary disease. ED physician has reviewed this report. - CT Brain CT CT Interpretation Completed By: Radiologist Summary of CT Findings: 1. Questionable hyperdense M2 branch of the left MCA ( attention on head CTA). 2. Otherwise, no acute intercranial abnormality by CT (MRI is more sensitive for acute infarct.). ED physician has reviewed this report. Head/Neck CTA CT Interpretation Completed By: Radiologist Summary of CT Findings: 1. No acute intracranial abnormality by CT (MRI is more sensitive for acute infarct). 2. No acute occlusive, severe stenosis or aneurysm in the head. (No CTA correlate for the same day head CT findings). 3. No acute occlusive disease or severe stenosis in the neck. 4. 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 5. A heterogeneously enhancing 1.1 cm nodule in the left lobe of the thyroidectomy further evaluated by ultrasound when chronically appropriate. ED physician has reviewed this report. - EKG 1442 Cardiac Rate: NL - 81bpm EKG Rhythm: Sinus Rhythm ST Segment: Normal Ectopy: None Summary of EKG Findings: EKG at 1442 shows NSR at 81bpm with no ST elevations and nml axis. Dr. Sanz has reviewed and interpreted this EKG. NIH Scale - NIH Scale Level of Consciousness: Alert/Keenly Responsive Ask Patient the Month and His/Her Age: Neither Correct/Aphasic Ask Pt to Open/Close Eyes and Railroad Track Inspector/Release Non-Paretic Hand: Both Correctly Best Gaze (Only Horizontal Eye Movement): Normal Visual Field Testing: No Visual Loss Facial Paresis-Pt to Smile & Close Eyes or Grimace Symmetry: Normal/Symmetrical Motor Function - Right Arm: Drifts LT 10 seconds Motor Function - Left Arm: No Drift-Holds 10 Seconds Motor Function - Right Leg: Drifts LT 10 seconds Motor Function - Left Leg: No Drift-Holds 10 Seconds Limb Ataxia-Must be out of Proportion to Weakness Present: Present in One Limb Sensory (Use Pinprick to Test Arms/Legs/Trunk/Face): Pinprick Less on Affected Best Language (Describe Picture, Name Items): No Aphasia Dysarthria (Read Several Words): Normal Extinction and Inattention: No Abnormality Total Score: 6 Course/Dx - Course Assessment/Plan: Pt is a 54 y/o F presenting to the ED brought in by EMS for neurological deficit. Per EMS, they were called to today by Dr. Campbell as the pt was hypertensive, confused, and not making a lot of sense. Notable R shoulder surgery in August of 2019. She is weak on her R side which she states is intermittent but then denies, and is reporting decreased sensation on the R side of her body. EMS states her gait is normal. When asked the months, it takes her a couple minutes of using significant dates to her to remember correctly. NIH stroke scale done 1413. CODE LEYVA CALLED 1414. Pt not on anticoagulants, considering tPA. Per family, pt last texted them normally at 12: 30pm today, which is her last known well time. Pt to CT at 14:16, returned to room at 14:23. Discussed CT results at 14:[address] Ramos at bedside. He recommends no TPA since the symptoms have improved. He recommends a CTA. CTA as per Dr. Noyola negative for occlusion. Results at 15:25. As per Dr. Ramos the patient was given a banana bag, aspirin. Blood work without a significant abnormality except for glucose 135, lactic acid is 2.2, increased LFTs and alkaline phosphatase is 110. Chest x-ray impression no evidence for active cardiopulmonary disease. At this time Dr. Ramos recommends for the patient to be admitted to the hospitalist with a diagnosis of a TIA. I discuss my physical exam and test results with Dr. Smith from the hospitalist services and she agrees to admit the patient to her services. The patient is hemodynamically stable alert and oriented x 3. - Diagnoses Provider Diagnoses: TIA (transient ischemic attack), Uncontrolled hypertension During the Visit The Following Alert/Code Occurred: Code Leyva - Critical Care Time Critical Care Time: 30-74 min - 30min Discharge ED - Sign-Out/Discharge Documenting (check all that apply): Patient Departure - Discharge Plan Condition: Stable Disposition: ADMITTED TO [facility] - Billing Disposition and Condition Condition: STABLE Disposition: Admitted to [facility] - Attestation Statements Document Initiated by Terenceibe: Yes Documenting Scribe: Cori Galdamez Provider For Whom Damián is Documenting (Include Credential): Sumeet Sanz MD. Scribe Attestation: ICori, scribed for Sumeet Sanz MD. on 11/03/19 at 2039. Scribe Documentation Reviewed: Yes Provider Attestation: The documentation as recorded by the terenceibeCori accurately reflects the service I personally performed and the decisions made by me, Sumeet Sanz MD. Status of Scribe Document: Viewed Consult Consult: 7754 - I spoke with Dr. Ramos who believes the pt has experienced a TIA. He states he got an NIH stroke scale of 1. He also recommends not giving tPA d/t these findings. 1600 - I discussed the case with Dr. Smith who [place] [facility] [place]
[2019-11-03] MEDS ORDERED: Labetalol IV* 5 MG/ML 20 ML VIAL IV PUSH ONE (14:25)
[2019-11-03 14:40] LABS: ABS Eosinophils 0.1 10^3/ul (0-0.6); ABS Lymphocytes 0.7 10^3/ul (1.0-4.8); ABS Monocytes 0.3 10^3/ul (0-0.8); ABS Neutrophils 3.8 10^3/ul (1.5-7.7); Eosinophil % 2.1 %; Hematocrit 43 % (35-47); Hemoglobin 14.7 g/dL (12.0-16.0); Lymphocyte % 14.9 %; Mean Corpuscular HGB Conc 34 g/dL (31-36); Mean Corpuscular Hemoglobin 31 pg (27-31); Mean Corpuscular Volume 90 fL (80-97); Nucleated Red Blood Cells % 0.1; Platelet Count 179 10^3/uL (150-450); Red Blood Count 4.76 10^6 /uL (3.70-4.87); Red Cell Distribution Width 13 % (10-15)
[2019-11-03] MEDS ORDERED: Alteplase* 100 MG VIAL ONE (14:51)
[2019-11-03 14:55] LABS: Activated Partial Thrombo Time 29.5 seconds (26.0-38.0); INR 0.94 (0.82-1.09)
[2019-11-03] MEDS ORDERED: Iodixanol* (CONTRAST) 320 MG/ML 100 ML SDV IV ONE (15:00)
[2019-11-03 15:05] LABS: Albumin/Globulin Ratio 2.2 (1-3); Calcium 9.9 mg/dL (8.6-10.3); EGFR African American 125.6 (>60); EGFR Non-African American 103.8 (>60); Globulin 2.3 g/dL (2-4); HDL Cholesterol 53.6 mg/dL; Potassium 4.1 mmol/L (3.5-5.0); Total Bilirubin 0.8 mg/dL (0.2-1.0); Total Protein 7.3 g/dL (6.4-8.9)
[2019-11-03] MEDS ORDERED: Thiamine INJ* 100 MG, Folic Acid IV* 1 MG, Multiple Vitamin IV ADULT* 10 ML in NS 0.9% ... IV ONE (15:18)
[2019-11-03] MEDS ORDERED: Aspirin 81 mg CHEW TAB* 81 MG TAB.CHEW PO ONE (15:24)
[2019-11-03 15:35] LABS: Urine Appearance Clear; Urine Bilirubin Negative (Negative); Urine Blood Negative (Negative); Urine Color Straw; Urine Glucose Negative (Negative); Urine Ketones Negative (Negative); Urine Nitrite Negative (Negative); Urine Protein Negative (Negative); Urine Specific Gravity 1.014 (1.010-1.030); Urine Urobilinogen Negative (Negative)
--- NOTE | 2019-11-03 16:54 | CONS ---
CONSULTATION REPORT: DATE OF CONSULT: 11/03/19 PATIENT OF: Dr. Sanz. HISTORY OF PRESENT ILLNESS: This is a 54-year-old right-handed woman who was at her physical therapy this morning and at noon time and felt her blood pressure going up, so went to [facility]. The daughter met her there and said that she was having difficulty speaking and may have been weak on the right side. She then called the physical therapist and found out that the mom had none of these symptoms at physical therapy and the last time she was at physical therapy was at 12:30, so that was the last known well, and when she met her at about 1:30 at [facility], her mom was not doing well. She was evaluated by Dr. Campbell, who also said that there might have been some right- sided weakness and confusion and therefore was sent by ambulance to here. I met her while she was in CAT scan. She has had no prior stroke, arrhythmia, or heart disease. No hypertension or other cardiovascular risk factors. She does have some depression, on Zoloft. She has had a right shoulder surgery in August, for which she still gets physical therapy and is on a pain medicine for this. She does not remember the name of it. MEDICATIONS: She is on no blood thinners. The dose of Zoloft is 150 mg daily. She is apparently on Percocet 1 tab q.8 hours as needed as well as Flexeril 10 mg at bedtime as needed and diclofenac 75 mg b.i.d. ALLERGIES: She has no known drug allergies. FAMILY HISTORY: There is no family history for stroke. SOCIAL HISTORY: She does not smoke or do drugs. She admitted to some degree of alcohol significant use but was not able to quantitate that for me. PHYSICAL EXAM: No vital signs are entered currently, but her blood pressure had been running on the monitor above 190 to 200/up to 115. She got some labetalol which I stopped as the blood pressure decreased to 170/100. She has not eaten or drank today and she is getting fluids as well. Her NIH stroke scale was 1, just for some right leg, everything was otherwise normal and is written on the chart and documented and this was done within 15 minutes of arrival. It was done in the daughter's presence, who notes that she looks completely better than from how she was when she first met her at [facility]. On exam, in detail, she was alert and oriented x3 with normal speech and comprehension. Cranial nerves II through XII were intact including normal visual field, normal faces and gaze. There was no pronator drift. Strength was 5/5. She was able to hold her leg in a persistent way against gravity in both right and left leg, but in the right leg there was a little bit of a waver to it and this is what she lost points for. Sensation intact to light touch without any extinction. There was no neglect on the right side. Toes were equivocal, downgoing. Reflexes were symmetric. Chest: Clear. Cardiovascular : Regular rate and rhythm. Abdomen is soft with positive bowel sounds. DIAGNOSTIC STUDIES/LAB DATA: I reviewed her CT scan when done which showed no bleed or acute abnormalities. The radiologist thought that there was questionable M2 hyperdensity in the left MCA, but was not sure of this. A CTA is being done currently. Labs show normal CBC. Other studies are pending. ASSESSMENT AND PLAN: I discussed with the patient and her family that she could have either had a hypertensive encephalopathy or a small stroke or transient ischemic attack which is in the process of improving dramatically and that her current NIH stroke scale is low enough that she would not be a tPA candidate at this time. However, we will see what the CTA shows, and if it does show a large clot, we will have to reassess and I will be sending the films to [facility] and if it shows something significant, we will work with them in terms of optimal placement. Otherwise, she will be admitted here, have an MRI scan, echo with bubble study, fasting lipids, and will begin on antiplatelet medications. Thank you for sharing her case. [id number]/[facility] #: [id number] LEILANI
[2019-11-03] MEDS ORDERED: Acetaminophen TAB* 325 MG PO PRN (17:12)
[2019-11-03] MEDS ORDERED: hydrALAZINE IV* 20 MG/ML VIAL IV SLOW PU PRN (17:14)
[2019-11-03] MEDS ORDERED: oxyCODONE/Acetamin 5/325 MG* TAB PO PRN (17:22)
[2019-11-03] MEDS ORDERED: Cyclobenzaprine TAB* 10 MG PO PRN (17:22)
[2019-11-03] MEDS ORDERED: Clopidogrel TAB* 75 MG PO ONE (17:24)
[2019-11-03] MEDS ORDERED: Enoxaparin(*) 40 MG/0.4 ML SYR SUBCUT SCH (18:00)
[2019-11-03] MEDS: Lisinopril TAB* 5 MG PO SCH (18:41)
[2019-11-03] MEDS: NS 0.9% 1000 ML** 1,910 ML IV ONE ×2 (18:51→21:33)
--- NOTE | 2019-11-03 19:39 | HP ---
CC: Susan Watters MD * HISTORY AND PHYSICAL: DATE OF ADMISSION: 11/03/19 PRIMARY CARE PROVIDER: Susan Watters MD. ATTENDING PHYSICIAN: Marcia Smith DO * (dictated by DARWIN Mari). CHIEF COMPLAINT: 1. Aphasia. 2. Right-sided weakness. 3. Hypertension. HISTORY OF PRESENT ILLNESS: Ms. Ta is a 54-year-old female with a known significant past medical history, who presented to the ER today with complaints of elevated blood pressure. The patient states she was at PT today at 1200 and felt as if she was having an elevated blood pressure. She therefore went to [employer] to use machine and had 2 readings of blood pressures in the 190s. She went to Urgent Care for this concern and her daughter arrived to meet her, at which time the patient was complaining of aphasia/slurred speech as well as altered mental status stating, "I can't think." Her daughter reports that she had an unsteady gait with limping or wobbling and reports that she is unsure what side. The patient also complained of associated headache, dizziness, fatigue, and nausea. Upon arrival to the ER, the patient's NIH stroke scale was 6. Shortly thereafter, Dr. Ramos saw the patient, and upon repeating NIH stroke scale, her score was 1, only notable for a right leg drift. The patient feels that she has no weakness. TPA was not administered due to improvement in symptoms, last known well was approximately 12:30 today. In the ER, the patient received a full workup. CBC was unremarkable. CMP showed a mildly elevated glucose, elevated lactic acid, transaminitis, and LDL of 164. Urinalysis was negative. EKG showed a heart rate of [address] changes. Repeat EKG showed heart rate of [address] of the brain showed possible hyperdense area in the left MCA, otherwise no acute abnormality. CTA of the head and neck was negative. In the ER, the patient received aspirin 324 mg, labetalol 15 mg, normal saline 1 L with additional thiamine and folic acid. The hospitalist team was asked to evaluate the patient for admission. PAST MEDICAL HISTORY: Depression. PAST SURGICAL HISTORY: Right rotator cuff in August 2019, , tubal, left knee, tonsillectomy, hysterectomy, metal removed from eye, left shoulder decompression. HOME MEDICATIONS: 1. Cyclobenzaprine 10 mg p.o. at bedtime p.r.n. 2. Diclofenac 75 mg p.o. b.i.d. 3. Oxycodone/acetaminophen 5/325 one tab p.o. q.8 hours p.r.n. pain. 4. Sertraline 150 mg p.o. daily. DRUG ALLERGIES: No known drug allergies. FAMILY HISTORY: Father had heart disease. Mother had colon cancer. No family history of CVA or diabetes mellitus. SOCIAL HISTORY: The patient denies current or former use of tobacco. She drinks approximately 9 alcoholic beverages per week for the last approximately 7 months. She states that she consumed more alcohol prior to that, but has cut down in the last 7 months. 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 She is with 3 children. She lives alone with her spouse. In the event that she is unable to make her own medical decision, she has appointed her spouse Darion Fay to be her surrogate decision maker. REVIEW OF SYSTEMS: A 14-point review of systems has been performed and all the pertinent positives and negatives are in the HPI. All other systems are negative. PHYSICAL EXAMINATION GENERAL: Ms. Ta is a well-developed, well-nourished, overweight, middle- aged white female, who is sitting up in bed. She appears to be in no acute distress. She is quite but cooperative. She is also tearful. HEENT: PERRL. EOMI. Visual jose grossly intact. Sclerae nonicteric without injection. Hearing is grossly intact. Oral mucous membranes are moist. There are no lesions. Oropharynx is clear. The tongue is at midline. The palate elevates symmetrically. PULMONARY: Symmetrical chest expansion without use of accessory muscles. Clear to auscultation bilaterally without rhonchi, wheeze, or rales. No digital clubbing or cyanosis. CARDIOVASCULAR: Regular rate and rhythm with S1 and S2 present without murmurs , rubs, clicks, or gallops. There is no JVD or peripheral edema. Radial and pedal pulses are palpable. ABDOMEN: Bowel sounds in all quadrants. Soft, nontender to palpation. Musculoskeletal: Right shoulder with decreased range of motion. The patient cannot abduct beyond approximately 75 degrees, tender to palpation. Muscle strength 5/5 bilaterally in upper and lower extremities. Litigation Secretary strength is equal. NEUROLOGIC: The patient is awake. She is alert and oriented x3. Cranial nerves II through XII are grossly intact. She is able to move all of her extremities as noted. Muscle strength 5/5 bilaterally in upper and lower extremities with equal minister assistant strength. DIAGNOSTIC STUDIES/LAB DATA: WBC 5.0, hemoglobin 14.7, hematocrit 43. MCV 90. Sodium 138, potassium 4.1, chloride 104, BUN 12, creatinine 0.60, glucose 135, lactic acid 2.20, total bilirubin 0.8, AST 40, ALT 63, alk phos 110, troponin 0.00, LDL 164. 1. EKG: Rate 89, rate 81. Both EKGs without ST changes. 2. Chest x-ray, impression: No evidence for active cardiopulmonary disease. 3. CT brain without, impression: Questionable hyperdense M2 branch of the left MCA (attenuation on head CTA). Otherwise, no acute intracranial abnormality by CT. MRI is more sensitive for acute infarct. 4. CTA head/neck, impression: No acute intracranial abnormality by CT. MRI is more sensitive for acute infarct. No acute occlusive severe stenosis or aneurysm in the head. No CTA correlate for the same day head CT findings. 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 ASSESSMENT AND PLAN: Ms. Ta is a 54-year-old female with no significant past medical history, who presented to the ER today with complaints of hypertension as well as associated aphasia and right-sided weakness. The patient will be admitted for: 1. Aphasia, right-sided weakness. This has since resolved. So far workup has been negative with a negative CT of the brain, negative CTA of the head and neck. This will be further evaluated with MRI. The patient will receive neuro checks q.4 hours. She will be continued on aspirin and Plavix. An echo with bubble study has been ordered. Neurology has been consulted and Dr. Ramos has seen the patient. Hemoglobin A1c has been added on to today's test. A lipid panel will be redrawn in the morning. Differential for this patient's symptoms include hypertensive emergency versus transient ischemic attack. 2. Hypertension. The patient presents with a systolic blood pressure between 170 and 200. She would receive labetalol 15 mg IV. She will be started on lisinopril 5 mg starting tonight, hydralazine p.r.n. SBP greater than 160 has been ordered. 3. Hyperlipidemia. The patient appears to have hyperlipidemia with a LDL of 164. We will repeat these levels fasting and she will likely need management with statin medication. 4. DVT prophylaxis: According to DVT Risk Assessment, the patient scores 2, placing her on moderate risk. She will be started on Lovenox. 5. Code status: Full code. TIME SPENT: Approximately 60 minutes was spent on this admission, greater than half that time was spent [id number] with the patient, her , and her daughter; obtaining history, performing physical, and reviewing the plan of care. The case has been discussed with my attending Dr. Smith, who is in agreement with the plan of care. DARWIN GLORIA [id number]/[facility] #: [id number] LEILANI
[2019-11-04 06:49] LABS: HDL Cholesterol 32.5 mg/dL
[2019-11-04] MEDS: Lisinopril TAB* 5 MG PO SCH (08:01)
[2019-11-04] MEDS ORDERED: Sertraline* 100 MG TAB PO SCH (09:00)
[2019-11-04] MEDS ORDERED: Clopidogrel TAB* 75 MG PO SCH (09:00)
[2019-11-04] MEDS ORDERED: Aspirin 81 mg CHEW TAB* 81 MG TAB.CHEW PO SCH (09:00)
[2019-11-04 12:06] VITALS: BP 147/87
--- NOTE | 2019-11-04 12:23 | ECHO ---
*[facility]* [place] [address] Fax #: [phone] Transthoracic Echocardiogram Patient: Kirstin Ta : 1965 Study Date: 11/04/2019 Age: 54 Gender: F HR: 87 bpm Height: 59 in /149.9 cm BSA: 1.7 m^2 Weight: 147.7 lb /67.1 kg BMI: 29.9 kg/m^2 *Health Center Manager: * Soo Clark RDCS RN *Referring Physician: * Ophelia LewisReading Physician: * Oz Flores MD Indications: TIA. History: Depression. ETOH use. Risk factors: Hypertension. Conclusions Summary: - Left ventricle: Systolic function is normal. The estimated ejection fraction is 60-65%. Wall motion is normal; there are no regional wall motion abnormalities. - Atrial septum: No defect or patent foramen ovale is identified. - Mitral valve: There is trace regurgitation. - Aortic valve: There is no evidence of stenosis. There is trace regurgitation. - Pulmonary arteries: Systolic pressure can not be accurately estimated. - Study data: No prior study is available for comparison. Study data: Transthoracic echocardiogram. Procedure: Transthoracic echocardiography was performed. Image quality was fair. Intravenous agitated saline was administered. A bubble study was performed. Complete 2D, spectral Doppler, and color flow Doppler. Location: Bedside. Patient status: Observation. Patient room number: 444-2. No prior study is available for comparison. Rhythm: Normal sinus rhythm. Findings Left ventricle: The cavity size is mildly reduced. Septal wall thickness is mildly increased. Systolic function is normal. The estimated ejection fraction is 60-65%. Wall motion is normal; there are no regional wall motion abnormalities. Left ventricular diastolic function parameters are normal. Right ventricle: The cavity size is normal. Systolic function is normal. Left atrium: The atrium is normal in size. Right atrium: The atrium is normal in size. Atrial septum: No defect or patent foramen ovale is identified. Bubble study was negative on images 94-96. Mitral valve: The leaflets are mildly thickened. There is no evidence of stenosis. There is trace regurgitation. Aortic valve: The valve is trileaflet. The leaflets are mildly thickened. There is no evidence of stenosis. There is trace regurgitation. Tricuspid valve: The leaflets are normal thickness. There is no evidence of stenosis. There is trace regurgitation. Pulmonic valve: The leaflets are normal thickness. There is no evidence of stenosis. There is trace regurgitation. Aorta: Ascending aorta: The ascending aorta is not dilated. Aortic arch: The aortic arch is not dilated. The aortic root appears normal. Pericardium: There is no significant pericardial effusion. Pulmonary arteries: The main pulmonary artery is normal-sized. Systolic pressure can not be accurately estimated. Systemic veins: Inferior vena cava: The vessel is normal in size. There is (>= 50%) respiratory change in the IVC dimension. Measurements Left ventricle Value Ref Right atrium continued Value Ref NIRAV, LAX (L) 3.5 cm 3.8 - 5.2 ML dim, ES, A4C 3.4 cm 2.6 - 4.4 ESD, LAX 2.2 cm 2.2 - 3.5 SI dim, ES, A4C 3.9 cm 3.4 - 5.3 FS, LAX 35 % 27 - 45 Estimated RAP 3 mm Hg --------- PW, ED 0.9 cm 0.6 - 0.9 IVS/PW, ED 1.18 Aortic valve Value Ref E', lat michell, TDI 10.0 cm/sec >=10.0 Peak v, S 1.38 m/sec -- ------- E/e', lat michell, 9 VTI, S 28.0 cm ----- ---- TDI Mean grad, S 4.5 mm Hg --------- E', med michell, TDI 8.0 cm/sec >=7.0 Peak grad, S 7.7 mm Hg -- ------- E/e', med michell, 11 LVOT/AV, VTI ratio 0.79 ----- ---- TDI E', avg, TDI 9.0 cm/sec Mitral valve Value Ref E/e', avg, TDI 10 <=14 Peak E 0.89 m/sec -- ------- Peak A 1.01 m/sec --------- LVOT Value Ref Decel time 232 ms --------- Peak shikha, S 1.04 m/sec Peak grad, D 3.2 mm Hg --------- VTI, S 22.2 cm Peak E/A ratio 0.88 --------- Peak grad, S 4 mm Hg Mean grad, S 2 mm Hg Pulmonic valve Value Ref Peak v, S 0.72 m/sec --------- Ventricular septum Value Ref Peak grad, S 2.1 mm Hg --------- IVS, ED (H) 1.1 cm 0.6 - 0.9 Aortic root Value Ref Right ventricle Value Ref Root diam 3.0 cm <3.9 NIRAV, LAX 2.7 cm NIRAV minor ax, 2.7 cm 1.9 - 3.5 Ascending aorta Value Ref A4C mid AAo AP diam, S 2.8 cm --------- Left atrium Value Ref Aortic arch Value Ref LA ID 2.9 cm Arch diam 2.0 cm --------- AP dim, ES 2.92 cm 2.70 - 3.80 Decending aorta Value Ref SI dim ES, LAX 2.9 cm Reese peak shikha 0.81 m/sec --------- ML dim, A4C 3.8 cm SI dim, A4C 4.2 cm Inferior vena cava Value Ref Vol, ES, 2-p 43 ml Diam 1.5 cm --------- Vol/bsa, ES, 2-p 25 ml/m^2 16 - 34 Right atrium Value Ref SI dim, ES 3.9 cm 3.4 - 5.3 Legend: (L) and (H) marylin values outside specified reference range. Prepared and electronically signed by Oz Flores MD 11/04/2019 12:23
[2019-11-04 14:15] LABS: TSH (Thyroid Stimulating Horm) 4.65 mcIU/mL (0.34-5.60)
[2019-11-04] MEDS ORDERED: Atorvastatin* 40 MG TAB PO SCH (17:00)
--- NOTE | 2019-11-04 21:04 | DS ---
CC: Dr. Watters DISCHARGE SUMMARY: ADDENDUM: In regards to the patient's heterogeneous left thyroid nodule of 1.1 cm, the patient is recommended to follow up with her primary care provider in regards to further ultrasound set up. The TSH was added on to the patient's admission lab work and is still pending at the time of dictation. The patient is aware that she needs to follow up with Dr. Watters in regards to her left thyroid nodule. [id number]/[facility] #: [id number] LEILANI
--- NOTE | 2019-11-04 21:29 | DS ---
ADDENDUM NOW INCLUDED ON THIS REPORT CC: Dr. Watters; Dr. Ramos; Dr. Pravin Melchor; Dr. Star Garcia, Orthopedic Surgeon, Sophie * DISCHARGE SUMMARY: DATE OF ADMISSION: 11/03/19 DATE OF DISCHARGE: 11/04/19 PRIMARY CARE PROVIDER: Dr. Watters. DISPOSITION AT DISCHARGE: To home. CONDITION AT DISCHARGE: Stable. DISCHARGE DIAGNOSES: 1. Altered mental status, transient, likely due to transient ischemic attack versus hypertensive emergency. 2. Hypertension, which is a new diagnosis. 3. Prediabetes, which is a new diagnosis. DIET: At discharge, the patient is recommended to have low cholesterol and low sugar diet. MEDICATIONS AT DISCHARGE: Include: 1. Flexeril 10 mg at bedtime p.r.n. 2. Oxycodone/acetaminophen as previously taken p.r.n. 3. Sertraline 150 mg daily. 4. Aspirin 81 mg daily. 5. Lipitor 40 mg daily. 6. Plavix 75 mg daily. 7. Lisinopril 5 mg daily. The patient is recommended to continue Plavix for 1 month and then discontinue it after 1 month, but continue aspirin. FOLLOWUP APPOINTMENTS: The patient is recommended to follow up with Dr. Watters in approximately 4 to 7 days. LABORATORY DATA AND STUDIES PERFORMED DURING THE HOSPITAL STAY: Included: The patient's triglycerides were 444, cholesterol 216, cholesterol LDL 122 and HDL 32. The patient's hemoglobin A1c was 6.0. Sodium of 138, potassium 4.1, chloride 104, carbon dioxide 24, BUN 12, creatinine 0.6. CBC obtained on admission: White blood cell count of 5.0, hemoglobin of 14.7, hematocrit of 43, and platelets of 179. The patient had an MRI of the brain obtained at admission on 11/03/19, impression: "No intracranial lesion is noted. No evidence of hemorrhage is noted." Echo obtained on 11/04/19 showed EF of 60% to 65% with no regional wall motion abnormalities with no PFO noted. Head CTA, impression: "No acute intracranial abnormality by a CT. No acute occlusive severe stenosis or aneurysm of the head. No acute occlusive disease or severe stenosis of the neck. 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 Heterogenously enhancing 1.1 cm nodule of the left lobe of the thyroid, further evaluated by the ultrasound when clinically appropriate." Portable chest x-ray, impression: "No evidence of acute cardiopulmonary disease." CONSULTATIONS DURING THE HOSPITAL STAY: Included Dr. Ramos from Neurology. HOSPITALIZATION COURSE: Kirstin Ta is a 54-year-old female who has history of right shoulder surgery at the end of 2018. The patient stated that for the past 1 month, her shoulder had been "frozen again." She went to an orthopedic surgeon, who prescribed the patient diclofenac sodium twice a day. Also when she was being prescribed the medications, she was noted to be hypertensive. She stated that she had been taking the diclofenac and doing somewhat okay, although very upset and in pain due to her right shoulder issues. On the day of admission on 11/03/19, she stated that she felt that her blood pressure was high. She stated that she felt that she could not process her thoughts and she was noted to have problems with unsteady gait, headache, dizziness and fatigue. These symptoms occurred when she was doing physical therapy on her shoulder. She went initially to [facility] and from there, she was sent to our emergency department for further evaluation. It was noted the patient's blood pressures were above 200 on admission. The patient was treated with labetalol acutely for her hypertension. Finally, she is stabilized after she was placed on lisinopril p.o. and by the time of discharge, her pressures had been in the 130s to 160s systolically on lisinopril alone. She was noted to have hemoglobin A1c of 6.0 and she was diagnosed with prediabetes, which she had knowledge. She is recommended to continue with low sugar diet. Her cholesterol profile was abnormal and she was started on Lipitor. Dr. Ramos saw the patient in consultation and assessed the patient as likely TIA versus hypertensive urgency/emergency. At this point, Dr. Ramos recommended dual- antiplatelet treatment for a month and then go back to aspirin from thereafter. The patient also was started on Lipitor for dyslipidemia, lisinopril for hypertension. She was recommended to discontinue the diclofenac that could have worsen her systolic pressures. By the time of discharge, she is neurologically back to her baseline and she is recommended to follow up with her primary care provider in 4 to 7 days. PHYSICAL EXAMINATION: At time of discharge, blood pressure of 144/94, heart rate of 87 and regular, respiratory rate 18, oxygen saturation 99% on room air, temperature 97.7. General: The patient is a very pleasant 54-year-old white female, who is in no acute distress. The patient is alert and oriented x3. HEENT : Head: Atraumatic, normocephalic. Eyes: Pupils are equal, reactive to light and accommodation. Oropharynx is clear. Mucosa moist. Neck: Supple. No JVD. No bruits bilaterally. Cardiovascular: Regular rate and rhythm. No murmur. Respiratory: Clear to auscultation bilaterally. Abdomen: Soft, nontender. Bowel sounds are present in all 4 quadrants. Extremities: There is no edema. Pulses are +2 bilaterally. No clubbing or cyanosis. On neuro evaluation, speech is clear. Cranial nerves II through XII grossly intact. Motor strength is 5/5 bilaterally. Please note that this is a short summary of the patient's hospital stay. Please refer to further medical records for details. TIME SPENT: Approximately 40 minutes was spent on the patient's discharge. ADDENDUM: In regards to the patient's heterogeneous left thyroid nodule of 1.1 cm, the patient is recommended to follow up with her primary care provider in regards to further ultrasound set up. The TSH was added on to the patient's admission lab work and is still pending at the time of dictation. The patient is aware that she needs to follow up with Dr. Watters in regards to her left thyroid nodule. [id number]/[facility] #: [id number]/[facility] #: [id number] LEILANI
== END 2019-11-04 13:39 | disposition home or self-care (01) ==
LOC: ED 14:09 → MEDTELE 17:12
PROVIDERS: ADMIT Hospitalist; ATTEND Internal Medicine
DX: R41.82 Altered mental status, unspecified (principal); I10 Essential (primary) hypertension; R73.03 Prediabetes; Z79.899 Other long term (current) drug therapy; Z79.82 Long term (current) use of aspirin; Z86.73 Personal history of transient ischemic attack (TIA), and cerebral infarction without residual deficits
CPT/HCPCS: 36415; 70450; 70496; 70498; 70551; 71045; 80053; 80061; 81003; 83036; 83605; 83721; 84443; 84484; 85025; 85610; 85730; 93005; 93306; 96361; 96365; 96372; 96375; 99285; A9270-GY; G0378; J1650; J2997; J3411; Q9967